=== PATIENT | female | born 1990 | race Caucasian/White ===

== ENCOUNTER 2023-05-13 01:40 | Emergency (ER) | payer OTHER ==
[2023-05-13 01:54] VITALS: BP 109/74; PULSE 87; RESP 18; TEMP 97.7; BMI 22.4
[2023-05-13] MEDS ORDERED: KETOROLAC TROMETHAMINE 30 MG/1 ML VIAL IVPUSH ONE (02:17)
[2023-05-13] MEDS ORDERED: KETOROLAC TROMETHAMINE 30 MG/1 ML VIAL ONE (02:20)
[2023-05-13] MEDS ORDERED: ACETAMINOPHEN INJECTION 100 ML IVPB ONE (02:42)
[2023-05-13 02:43] LABS: BASO % 0.5 % (0-2.0); EOS % 0.9 % (0-4.5); HEMATOCRIT 35.4 % (32.4-45.2); HEMOGLOBIN 12.1 GM/dL (10.7-15.3); LYMPH % 16.6 % (8-40); MCH 31.2 pg (25.7-33.7); MCHC 34.1 g/dl (32.0-36.0); MEAN CELL VOLUME 91.3 fl (80-96); MEAN PLT VOLUME 7.6 fl (7.5-11.1); MONO % 6.2 % (3.8-10.2); NEUT % 75.8 % (42.8-82.8); PLATELET COUNT 205 10^3/uL (134-434); RBC 3.88 M/mm3 (3.60-5.2); RDW 13.1 % (11.6-15.6); WHITE BLOOD COUNT 9.1 K/mm3 (4.0-10.0)
[2023-05-13] MEDS ORDERED: ACETAMINOPHEN 1000 MG/100 ML BAG IVPB ONE (02:47)
[2023-05-13 03:02] LABS: CALCIUM 8.5 mg/dL (8.5-10.1)
[2023-05-13 03:03] LABS: ALBUMIN 3.1 g/dl (3.4-5.0); BLOOD UREA NITROGEN 13.1 mg/dL (7-18)
[2023-05-13 03:06] LABS: CREATININE 0.6 mg/dL (0.55-1.3)
[2023-05-13 03:07] LABS: TOT PROT 5.7 g/dl (6.4-8.2)
[2023-05-13 03:08] LABS: BILIRUBIN,TOTAL 0.2 mg/dL (0.2-1)
[2023-05-13] MEDS ORDERED: AMOX TR/POT CLAV 875MG/125MG TABLETS (FP) PO ONE (04:59)
[2023-05-13] MEDS ORDERED: AMOX TR/POT CLAV 875MG/125MG TABLETS (FP) ONE (05:01)
== END 2023-05-13 05:18 | disposition home or self-care (01) ==
LOC: JER 01:40
PROC: 3E033NZ Introduction of Analgesics, Hypnotics, Sedatives into Peripheral Vein, Percutaneous Approach (ICD-10-PCS; principal; 2023-05-13)
DX: K08.89 Other specified disorders of teeth and supporting structures (principal); R68.84 Jaw pain; K04.7 Periapical abscess without sinus; K02.9 Dental caries, unspecified; K06.1 Gingival enlargement
CPT/HCPCS: 36415; 70491-TC; 80053; 84703; 85025; 99285-25